=== PATIENT | male | born 1975 | race Caucasian/White ===

== ENCOUNTER 2017-09-12 07:12 | Emergency (ER) | payer OTHER ==
[~2017-09-12] VITALS: Ht 177.8 cm; Wt 74.8 kg
[2017-09-12 07:18] VITALS: BP 133/83
[2017-09-12] MEDS ORDERED: APAP650 PO (07:20)
[2017-09-12] MEDS ORDERED: PENICILLIN V P500 MG PO (07:30)
[2017-09-12] MEDS ORDERED: NORCO 5-325 TA1 EACH PO (07:30)
== END 2017-09-12 07:45 | disposition home or self-care (01) ==
LOC: M.ERS 07:12
DX: K08.89 Other specified disorders of teeth and supporting structures (principal); J45.909 Unspecified asthma, uncomplicated